=== PATIENT | female | born 1990 | race Caucasian/White ===

== ENCOUNTER → 2018-10-03 | Outpatient (CLI) | payer MEDICAID, SELFPAY ==
[2017-04-14 17:37] VITALS: BMI 22.8
[2018-10-08 13:30] LABS: HPV Reflexed? NOT INDICATED
== END | disposition home or self-care (01) ==
LOC: WOBLAB 15:07 → LABSPEC 15:07
PROVIDERS: Visit Provider Obstetrics & Gynecology
DX: Z12.4 Encounter for screening for malignant neoplasm of cervix (principal)
CPT/HCPCS: 87624; 88175; G0145

== ENCOUNTER → 2019-04-09 15:50 | Outpatient (CLI) | payer MEDICAID, SELFPAY ==
[2017-04-14 17:37] VITALS: BMI 22.8
[2019-04-09 18:03] LABS: Chlamydia Trachomatis by PCR Negative (Negative); Neisserai gonorrhoeae by PCR Negative (Negative); Probe Check PASS; Sample Adequacy Control PASS; Specimen Processing Control PASS
== END ==
PROVIDERS: Visit Provider Obstetrics & Gynecology
DX: Z11.3 Encounter for screening for infections with a predominantly sexual mode of transmission (principal)
CPT/HCPCS: 87491; 87591

== ENCOUNTER → 2019-04-24 | Outpatient (CLI) | payer MEDICAID, SELFPAY ==
[2019-04-24 18:17] LABS: Absolute Lymphocyte Count 1.14 X10^3/uL (0.83-4.51); Absolute Neutrophil Count 7.6 X10^3/uL (2.0-7.7); Basophil# 0.04 X10^3/uL; Basophil% 0.4 % (0-1); Eosinophil# 0.03 X10^3/uL; Eosinophils% 0.3 % (0-5); Hematocrit 39.4 % (37-47); Lymphocyte # 1.14 X10^3/ul (4.0); Lymphocyte % 12.4 % (19-41); Mean Corpuscular Hgb 29.5 pg (27.0-32.0); Mean Corpuscular Volume 89.3 fL (81-99); Mean Platelet Vol. 11.6 fl (6.2-12.0); Monocyte# 0.36 X10^3/uL; Monocyte% 3.9 % (0-10); NRBC Flagged by Analyzer 0 % (0-5); Neutrophil # 7.58 X10^3/uL (2.7-7.7); Neutrophil % 82.7 % (47-70); Platelet Count 209 K/mm3 (150-450); RBC Distribution Width CV 11.8 % (11.6-14.6); Red Blood Count 4.41 M/mm3 (4.2-5.4); White Blood Count 9.2 K/mm3 (4.4-11.0)
[2019-04-24 18:23] LABS: Color, Urine Yellow (Yellow); Glucose, Dipstick Normal (Normal); Ketone-Dipstick Negative (Negative); Leukocyte Esterase-Dipstick 500 /ul (Negative); Nitrite-Dipstick Negative (Negative); Occult Blood-Urine 50 /ul (Negative); Protein-Dipstick Negative (Negative); Urine Bilirubin Dipstick Negative (Negative); Urine Clarity Clear (Clear); Urine Urobilinogen Normal (Normal); Urine pH 6.5 (5.0 - 8.0)
[2019-04-24 18:40] LABS: Thyroid Stim Hormone (TSH) 0.15 uIU/mL (0.358-3.74)
[2019-04-24 18:47] LABS: Amphetamine Urine VISTA NEGATIVE (<1000 ng/mL); Barbiturate Urine VISTA NEGATIVE (< 200 ng/mL); Benzodiazepine Urine VISTA NEGATIVE (< 200 ng/mL); Cocaine Urine VISTA NEGATIVE (< 300 ng/mL); Ecstacy Urine VISTA NEGATIVE (< 500 ng/mL); Methadone Urine VISTA NEGATIVE (< 300 ng/mL); PCP Urine VISTA NEGATIVE (< 25 ng/mL); THC Urine VISTA NEGATIVE (< 50 ng/mL); Vista UDS pH Range 6
[2019-04-25 10:11] LABS: HIV - WCH Non-Reactive (Nonreactive); Hepatitis B Surface Antigen Non-Reactive (Nonreactive); Hepatitis C Antibody Non-Reactive (Nonreactive); Rubella IgG 191.9 IU/mL
[2019-05-01 02:23] LABS: Prenatal RPR NONREACTIVE (NONREACTIVE)
== END | disposition home or self-care (01) ==
LOC: WOBLAB 15:59
PROVIDERS: Referring Provider Advanced Practice Midwife; Visit Provider Advanced Practice Midwife
DX: Z34.81 Encounter for supervision of other normal pregnancy, first trimester (principal)
CPT/HCPCS: 36415; 80307; 81002; 84443; 85025; 86703; 86762; 86803; 87340

== ENCOUNTER → 2019-09-15 13:37 | Outpatient (CLI) | payer MEDICAID, SELFPAY ==
[2019-09-15 13:55] LABS: Hematocrit 33.3 % (37-47); Mean Corpuscular Hgb 30.1 pg (27.0-32.0); Mean Platelet Vol. 10.6 fl (6.2-12.0); Platelet Count 173 K/mm3 (150-450); RBC Distribution Width CV 12.3 % (11.6-14.6); Red Blood Count 3.66 M/mm3 (4.2-5.4); White Blood Count 10.9 K/mm3 (4.4-11.0)
[2019-09-15 14:35] LABS: Free T3 2.6 pg/mL (2.18-3.98); Glucose Challenge Gest 1H 50g 130 mg/dL (70-140); T4 Free Direct 0.87 ng/dL (0.76-1.46)
== END ==
PROVIDERS: Visit Provider Obstetrics & Gynecology
DX: Z34.83 Encounter for supervision of other normal pregnancy, third trimester (principal)
CPT/HCPCS: 36415; 82950; 84439; 84481; 85027

== ENCOUNTER → 2019-11-14 14:19 | Outpatient (CLI) | payer MEDICAID, SELFPAY ==
[2017-04-14 17:37] VITALS: BMI 22.8
== END ==
PROVIDERS: Visit Provider Obstetrics & Gynecology
DX: Z36.85 Encounter for antenatal screening for Streptococcus B (principal)
CPT/HCPCS: 87081

== ENCOUNTER 2019-11-17 05:12 | Outpatient (CLI) | payer MEDICAID, SELFPAY ==
[2017-04-14 17:37] VITALS: BMI 22.8
[2019-11-17 05:27] VITALS: BMI 29.6
[2019-11-17 05:36] VITALS: BP 103/58; PULSE 93
[2019-11-17 05:47] VITALS: TEMP 36.5; O2SAT 98
[2019-11-17 07:22] VITALS: TEMP 36.8
[2019-11-17 07:23] VITALS: BP 121/75; PULSE 74
--- NOTE | 2019-11-17 23:30 | OB.TRI.HP_ITS ---
- Problem List (1) 37 weeks gestation of Status: Acute History of Present Illness Date of Service: 11/17/19 Was patient seen by the physician?: No Reason For Visit: RULE OUT LABOR Date of Service: 11/17/19 Final JOHNNY: 12/07/19 Final JOHNNY Source: US <20 weeks Gestational age: 37 Weeks and 1 Days History of Present Illness: Complaints of contractions which started two hours ago. Allergies No Known Allergies Allergy (Verified 11/17/19 05:50) Review of Systems Constitutional: Denies: Chills, Fever, Weight Change HEENT: Denies: Head Aches, Sinus Congestion, Sinus Drainage Cardiovascular: Denies: Chest Pain, Palpitations Respiratory: Denies: Cough, Shortness of breath at rest, Sputum production Gastrointestinal: Denies: Abdominal Pain, Nausea, Vomiting Genitourinary: Denies: Dysuria Musculoskeletal: Denies: Joint Pain, Joint Tenderness Skin: Denies: Rash, Wounds Neurological: Denies: Numbness, Tingling, Focal weakness Psychiatric: Denies: Anxiety, Depression, Homicidal Ideations, Suicidal Ideations Hematologic/ Lymphatic: Denies: Easy Bruising, Easy Bleeding Physical Exam General: Alert, Oriented x3, No apparent distress HEENT: Atraumatic, Normocephalic. Negative for: Thyromegaly, Lymphadenopathy Cardiovascular: Regular rate, Regular Rhythm Lungs: Clear to auscultation Abdomen: Bowel Sounds Present, Gravid Neurological: Deep Tendon Reflexes 2+/4 and Symmetrical, Neuro grossly intact LEAD SOFTWARE ARCHITECT: Normal external genitalia. Negative for: Vulvar lesions Estimated gestational size: Appropriate for gestational size Presentation: Cephalic Cervix Dilation (cm): 4 Station: -2 Effacement (%): 50 NST - FHR Rate Baby A Baseline: 130 Variability:: Moderate Accelerations:: 15 x 15 Decelerations:: None NST Reactive:: Yes FHR Category:: Category I Uterine Activity:: irregular Q4-7m Impression/Plan A/P: at 37 weeks gestation here to rule out labor Complaints of contractions x 2 hours On arrival SVE /-2 NST Category I UC 4-7m irregular, palpating mild Watched for two hours, on cervical recheck no change at /-2 To discharge home with education on s/s of when to return
== END 2019-11-17 07:55 | disposition home or self-care (01) ==
PROVIDERS: Referring Provider Obstetrics & Gynecology; Visit Provider Obstetrics & Gynecology
DX: Z34.83 Encounter for supervision of other normal pregnancy, third trimester (principal); Z3A.37 37 weeks gestation of pregnancy
CPT/HCPCS: 59025; 59050; 99218; G0378

== ENCOUNTER → 2019-11-27 18:01 | Outpatient (CLI) | payer MEDICAID, SELFPAY ==
[2019-11-17 05:27] VITALS: BMI 29.6
== END ==
PROVIDERS: Referring Provider Obstetrics & Gynecology; Visit Provider Obstetrics & Gynecology
DX: Z11.59 Encounter for screening for other viral diseases (principal)
CPT/HCPCS: 87635; 94799; U0003

== ENCOUNTER 2019-12-01 06:54 | Inpatient (IN) | payer MEDICAID, SELFPAY ==
[2019-12-01] VITALS (46 sets, daily range): BP systolic 118–172; BP diastolic 65–90; PULSE 50–95; RESP 16; TEMP 36.9–37.8; O2SAT 96–100; BMI 29.2
[2019-12-01] MEDS: Lactated Ringers 1,000 ML 50 ML IV (07:40)
[2019-12-01 07:51] LABS: Absolute Lymphocyte Count 1.35 X10^3/uL (0.83-4.51); Absolute Neutrophil Count 8.5 X10^3/uL (2.0-7.7); Basophil# 0.05 X10^3/uL; Basophil% 0.5 % (0-1); Eosinophil# 0.06 X10^3/uL; Eosinophils% 0.6 % (0-5); Hematocrit 30.1 % (37-47); Hemoglobin 9.9 g/dL (12.0-15.0); Lymphocyte # 1.35 X10^3/ul (4.0); Lymphocyte % 12.8 % (19-41); Mean Corp Hgb Conc 32.9 g/dL (32-36); Mean Corpuscular Hgb 28.6 pg (27.0-32.0); Mean Platelet Vol. 10.9 fl (6.2-12.0); Monocyte# 0.52 X10^3/uL; Monocyte% 4.9 % (0-10); NRBC Flagged by Analyzer 0 % (0-5); Neutrophil # 8.54 X10^3/uL (2.7-7.7); Neutrophil % 80.7 % (47-70); Platelet Count 187 K/mm3 (150-450); RBC Distribution Width CV 12.8 % (11.6-14.6); RBC Distribution Width SD 39.9 fl (35.1-43.9); Red Blood Count 3.46 M/mm3 (4.2-5.4); White Blood Count 10.6 K/mm3 (4.4-11.0)
--- NOTE | 2019-12-01 08:12 | HP.PCM_ITS ---
- Problem List (1) 39 weeks gestation of Status: Acute History Date of Admission: 12/01/19 Final JOHNNY: 12/07/19 Final JOHNNY Source: US <20 weeks Gestational age: 39 Weeks and 1 Days History of this : This is a 29 year-old, G [3], P [2], at 39 weeks gestational age. Allergies No Known Allergies Allergy (Verified 11/17/19 05:50) Smoking Status: Current every day smoker Alcohol: None Number of Fetus(es): 1 NST - FHR Rate Baby A Baseline: 135 Variability:: Moderate Accelerations:: 15 x 15 Decelerations:: None NST Reactive:: Yes FHR Category:: Category I Uterine Activity:: quiet History Past Pregnancies: Past Pregnancies Labs: Mom's Labs & Results 12/01/19 12/01/19 07:40 07:40 WBC 10.6 RBC 3.46 L Hgb 9.9 L Hct 30.1 L MCV 87.0 MCH 28.6 MCHC 32.9 RDW Std Deviation 39.9 RDW Coeff of [place] 12.8 Plt Count 187 MPV 10.9 Immature Gran % (Auto) 0.500 Neut % (Auto) 80.7 H Lymph % (Auto) 12.8 L [place] % (Auto) 4.9 Eos % (Auto) 0.6 Baso % (Auto) 0.5 Absolute Neuts (auto) 8.5 H Absolute Lymphs (auto) 1.35 Nucleated RBC % 0 Blood Type Pending Antibody Screen Pending Social History Alleged father Justen Sanchez Smoking Yes Smoking Status Current every day smoker Expected Infant Delivery Method: Spontaneous Vaginal Review of Systems Constitutional: Denies: Chills, Fever, Weight Change HEENT: Denies: Head Aches, Sinus Congestion, Sinus Drainage Cardiovascular: Denies: Chest Pain, Palpitations Respiratory: Denies: Cough, Shortness of breath at rest, Sputum production Gastrointestinal: Denies: Abdominal Pain, Nausea, Vomiting Genitourinary: Denies: Dysuria Musculoskeletal: Denies: Joint Pain, Joint Tenderness Skin: Denies: Rash, Wounds Neurological: Denies: Numbness, Tingling, Focal weakness Psychiatric: Denies: Anxiety, Depression, Homicidal Ideations, Suicidal Ideations Hematologic/ Lymphatic: Denies: Easy Bruising, Easy Bleeding Physical Exam Vitals: Vital Signs Temp Pulse BP Pulse Ox 100.0 F H 86 136/90 H 99 12/01/19 08:00 12/01/19 08:01 12/01/19 08:00 12/01/19 08:01 General: Alert, Oriented x3, No apparent distress HEENT: Atraumatic, Normocephalic. Negative for: Thyromegaly, Lymphadenopathy Cardiovascular: Regular rate, Regular Rhythm Lungs: Clear to auscultation Abdomen: Bowel Sounds Present, Gravid Neurological: Deep Tendon Reflexes 2+/4 and Symmetrical, Neuro grossly intact JOB PLACEMENT OFFICER: Normal external genitalia. Negative for: Vulvar lesions Estimated gestational size: Appropriate for gestational size Presentation: Cephalic Cervix Dilation (cm): 2 Station: -2 Effacement (%): 30 Assessment/Plan All Active Problems 37 weeks gestation of (Acute) 39 weeks gestation of (Acute) Nausea and vomiting in adult (Acute) Diarrhea (Acute) A/P: This is a 29 year-old, G [3], P [2], at 39 weeks gestational age. Elective IOL for a multip with hx of fast labors, 2nd labor=4 hours SVE 230/-2 medium posterior NST Category I Will start Pitocin Plans epidural for pain management and then agreeable to AROM Expect Procedure Criteria Procedure Type: Elective COVID Risk Discussion: The surgeon/proceduralist and patient have discussed in detail the risk of exposure to and/or potential harm posed by the COVID-19 virus with having a surgery/procedure at this time versus the risk of delaying the surgery/procedure. It is not possible to know either the risk of delaying the surgery or procedure or chance of getting an infection with perfect accuracy, but a joint decision was made between the patient and the surgeon/proceduralist to proceed at this time with the scheduled surgery/procedure as indicated on the consent form.
[2019-12-01] MEDS: Oxytocin 30 units/NS 500 ml 30 UNITS/500 ML IV.SOLN IV (08:29)
[2019-12-01] MEDS: Lactated Ringers 500 ML 999 ML IV ×2 (10:00→14:34)
[2019-12-01] MEDS: fentaNYL-bupivacaine (epidural) 100 ML BAG EPIDURAL (10:59)
[2019-12-01] MEDS: Oxytocin 30 units/NS 500 ml 30 UNITS/500 ML IV.SOLN 334 UNITS IV (15:21)
[2019-12-01] MEDS: Methylergonovine 0.2 MG/ML Ampul IM (15:23)
--- NOTE | 2019-12-01 15:34 | PCM.OPRPT ---
Vaginal Delivery Maternal Presentation: Elective Induction Method of Induction: Pitocin, Amniotomy Amniotic Membrane Rupture Type: Artificial Amniotic Fluid Description: Clear Final JOHNNY: 12/07/19 Final JOHNNY Source: US <20 weeks Gestational age: 39 Weeks and 1 Days Date of Procedure: 12/01/19 Pre-Operative Diagnosis: IUP Post-Operative Diagnosis: IUP Surgery/ Procedure Performed: Spontaneous Vaginal Delivery Type of Anesthesia: Epidural Description of Procedure: Spontaneous vaginal delivery of a viable male infant with Apgars of 9/9 from an occiput anterior presentation with clear amniotic fluid and normal three-vessel placenta. No episiotomy and first-degree midline laceration repaired with 3-0 Rapide suture under epidural. Sponges okay. Delivery physician: Bob Miranda MD. Presentation: Vertex Placental Delivery Description: Spontaneous Placenta Disposition: [facility] Cord Vessel Description: 3 Vessels Cord Entanglement: None Estimated Blood Loss: 250 cc A gender: Male (1 minute): 9 (5 minute): 9 Episiotomy Description: None Laceration: Midline, 1st degree Medications given after delivery: IV Pitocin, IM Methergin, - - History of hemorrhage and transfusion Complications: None
--- NOTE | 2019-12-01 15:39 | DCINST_ITS ---
Discharge Diet: No Restrictions Discharge Activity: May Shower, May Take a Tub Bath May resume sexual activity in: 4-6 weeks Additional Activity Instructions:: Nothing in the vagina for 4-6 weeks. You may return to work/school in 6 weeks. Call your doctor if you observe: Inability to urinate, Inability to have a bowel movement, Using more than one pad per hour Additional Instructions: If you experience any of the following, contact your healthcare provider. * Bleeding that soaks a pad every hour for 2 hours * Fever 100.4 or higher * Unrelieved incision or abdominal pain * Swelling, redness, discharge or bleeding from your incision or episiotomy site * Your incision begins to separate * Problems urinating (including inability to urinate or burning while urinating). * Visual changes * Severe headache * Flu-like symptoms * Pain or redness in one of both of your breasts * Pain, warmth, tenderness or swelling in your legs, especially the calf area * Frequent nausea and vomiting * Symptoms of depression or anxiety If you experience any of the following, call 911 or go to the nearest Emergency Room. * Chest pain * Problems breathing * Seizure activity * Partial or complete paralysis of a body part, slurred speech, weakness or drooping of the face, or a sudden inability to walk or hold your balance Allergies/Adverse Reactions: Allergies No Known Allergies Allergy (Verified 11/17/19 05:50) Medications to take at Discharge Pnv No.103/Folic/Om3s/Fish Oil [ Gummies] 1 ea PO DAILY 12/01/19 Please Follow Up With: Bob Miranda MD - [phone] When: Call to make an appointment with your doctor in 6 weeks. Primary Care Physician: Care Physician,No Primary [Primary Care Provider] - Test Results: Test results from this visit will be discussed in further detail at your follow- up appointment, if applicable.
--- NOTE | 2019-12-01 15:39 | PCM.DCVAG ---
Discharge Diet: No Restrictions Discharge Activity: May Shower, May Take a Tub Bath May resume sexual activity in: 4-6 weeks Additional Activity Instructions:: Nothing in the vagina for 4-6 weeks. You may return to work/school in 6 weeks. Call your doctor if you observe: Inability to urinate, Inability to have a bowel movement, Using more than one pad per hour Additional Instructions: If you experience any of the following, contact your healthcare provider. Bleeding that soaks a pad every hour for 2 hours Fever 100.4 or higher Unrelieved incision or abdominal pain Swelling, redness, discharge or bleeding from your incision or episiotomy site Your incision begins to separate Problems urinating (including inability to urinate or burning while urinating). Visual changes Severe headache Flu-like symptoms Pain or redness in one of both of your breasts Pain, warmth, tenderness or swelling in your legs, especially the calf area Frequent nausea and vomiting Symptoms of depression or anxiety If you experience any of the following, call 911 or go to the nearest Emergency Room. Chest pain Problems breathing Seizure activity Partial or complete paralysis of a body part, slurred speech, weakness or drooping of the face, or a sudden inability to walk or hold your balance Allergies/Adverse Reactions: Allergies No Known Allergies Allergy (Verified 11/17/19 05:50) Medications to take at Discharge Pnv No.103/Folic/Om3s/Fish Oil [ Gummies] 1 ea PO DAILY 12/01/19 Please Follow Up With: Bob Miranda MD - [phone] When: Call to make an appointment with your doctor in 6 weeks. Primary Care Physician: Care Physician,No Primary [Primary Care Provider] - Test Results: Test results from this visit will be discussed in further detail at your follow-up appointment, if applicable.
[2019-12-01] MEDS: Ibuprofen 600 MG Tablet PO (17:19)
[2019-12-01] MEDS: 0.9% Saline Lock 10 ML Syringe IV (17:19)
[2019-12-02 00:53] VITALS: BP 136/73; PULSE 61; RESP 16; TEMP 37.1
[2019-12-02] MEDS: Acetaminophen 500 MG Tablet 1000 MG PO (03:23)
[2019-12-02 04:43] VITALS: BP 134/66; PULSE 79; RESP 16; TEMP 37.1
[2019-12-02] MEDS: Ibuprofen 600 MG Tablet PO (04:50)
--- NOTE | 2019-12-02 08:23 | PCM.PN.OB ---
Patient Problems: Active and Suspected Problems 39 weeks gestation of (Acute) Subjective: Patient without complaints. Bottlefeeding. Wants to go home today. Minimal vaginal bleeding noted. - Physical Exam Vitals/I&O's: Vital Signs Temp Pulse Resp BP Pulse Ox 98.7 F 79 16 134/66 H 99 12/02/19 04:43 12/02/19 04:43 12/02/19 04:43 12/02/19 04:43 12/01/19 21:03 Oxygen Delivery Method Room Air Weight: 165 lb Body Mass Index (BMI) 29.2 Intake and Output for Last 24 Hours 11/30/19 12/01/19 12/02/19 23:59 23:59 23:59 Intake Total 2345.14 / 2345.14 Output Total 600 / 600 Balance 1745.14 / 1745.14 Laboratory Results 12/01/19 07:40: Blood Type O POSITIVE, Antibody Screen NEGATIVE Current Medications Acetaminophen (Tylenol) 1,000 mg PO Q8H PRN PRN PRN Reason: Pain Score 1-3/10 Last Admin: 12/02/19 03:23 Dose: 1,000 mg Documented by: Bisacodyl (Dulcolax) 10 mg RECTAL UD PRN PRN Reason: If no BM Dibucaine (Dibucaine) 1 applic TOPICAL TID PRN PRN; Protocol PRN Reason: Discomfort Hydrocortisone (Hytone) 1 applic TOPICAL TID PRN PRN; Protocol PRN Reason: Discomfort Ibuprofen (Motrin) 600 mg PO Q6H PRN PRN PRN Reason: Pain Score 1-3/10 Last Admin: 12/02/19 04:50 Dose: 600 mg Documented by: Methylergonovine Maleate (Methergine) 0.2 mg IM X1 PRN PRN Reason: Excess bleeding/uterine atony Last Admin: 12/01/19 15:23 Dose: 0.2 mg Documented by: Ondansetron HCl (Zofran) 4 mg IV Q4H PRN PRN PRN Reason: Nausea Oxycodone HCl (Oxyir) 5 - 10 mg PO Q4H PRN PRN PRN Reason: Pain Score 4-10/10 Senna/Docusate Sodium (Senokot-S, Maral-Colace) 1 - 2 tablet PO DAILY PRN PRN PRN Reason: Constipation Simethicone (Mylicon) 80 mg PO PCHS PRN PRN Reason: Indigestion/Stomach pain Sodium Chloride () 5 - 15 ml IV UD PRN PRN Reason: SALINE FLUSH Last Admin: 12/01/19 17:19 Dose: 10 ml Documented by: Zolpidem Tartrate (Ambien (Generic)) 5 mg PO QHS PRN PRN PRN Reason: Insomnia Medical Necessity - Tobacco Use Smoking Status: Current every day smoker Assessment/Plan All Active Problems 37 weeks gestation of (Acute) 39 weeks gestation of (Acute) Nausea and vomiting in adult (Acute) Diarrhea (Acute) Doing well day #1 status post routine spontaneous vaginal delivery. Will release to home with routine instructions.
[2019-12-02 08:30] VITALS: BP 117/68; PULSE 72; RESP 16; TEMP 37.1
[2019-12-02 08:57] VITALS: BP 117/68; PULSE 72
[2019-12-02 12:00] VITALS: BP 113/70; PULSE 83; RESP 16; TEMP 36.8
[2019-12-02 12:03] VITALS: BP 113/70; PULSE 83
--- NOTE | 2019-12-02 15:11 | CASEMGMT ---
Social Work Assessment (information below was generated with Entrust[employer] system) Labor and Delivery Unit Patient Address: [address] [place] [address] Phone number: [phone] Date of Referral: 12/01/2019 Time of Referral: 1550 Referred By: Dr. Miranda Date of Intervention: 12/02/2019 Time of Intervention: 1500 Reason for Referral: Resources, possible [facility] enrollment, and father of baby (FOB) not involved. History obtained from: Medical records and mother of baby (BRUCE) Angelica Baxter Household composition: BRUCE lives with her boyfriend Justen Ayala and their 2 older children. MOB plans to take baby to his home as well. MOB reports home situation is safe and adequate. Patient's parent/guardian status: MOB is a 29-year-old single female, and FOB is reported to be a 35-year-old single male named Justen [place]. [place] baby is reported to be the first child for the FOB, whom MOB reports she was with only one time. MOB reports has been in a 9-year relationship with Justen Ayala, and involvement with the reported FOB was during the 1 week timeframe when broken up with Justen Ayala. MOB reports that Justen Ayala plans to be supportive of both BRUCE and the baby. MOB denies any form of abuse, control or intimidation in the relationship with Justen Ayala. BRUCE now has 3 children: Linus Ayala, born 06/03/2013; Taco Ayala, born 12/30/2015; baby Sury Baxter, born 12/01/2019. Medical History: BRUCE is to 3 after care was good starting at 7 weeks gestation and regular that delivery occurred at 39 weeks is 9 and 9 at 1 and 5 minutes of life. Educational Status: High school. No indications of difficulty with reading, writing, or learning comprehension. Financial Status: And will be works at [employer] and will be taking 6 weeks of maternity leave. Justen Ayala is on Social Security disability for issues relating to reading and writing. Finances are reported to be adequate at this time. Supplies: MOB reports to have a safe sleep space for the baby and also to have a car seat. Reports also to have clothing, diapers, and wipes. MOB is planning to bottle feed the baby and reports ability to purchase formula until she can get into [facility]. Childcare/Caregiver(s): MOB will be the primary care provider. When BRUCE returns to work Justen Alba will be looking after Baby Sury. Transportation: No concerns. Programs/Agencies Involved: MOB is involved with job and family services for medical. MOB reports to have an appointment with [facility] on 12/03/2019 at 8 AM. Denies any other agency involvement, nor interest in any other agency referral. Children Services/Legal Issues: MOB denies any past or present involvement with children services. Denies any legal concerns. Behavioral Health Issues: Mental Health History: MOB denies any history of depression, anxiety, or bipolar disorder. Denies any history of depression. Denies any history of suicidal thoughts or attempts. Substance Use History: MOB denies any history of alcohol use in and denies any concerns with alcohol outside of . Denies any use of illicit substances including marijuana or any type of narcotic type prescription pills. Family History: MOB denies any family history. Drug Screens: And will be with a negative drug screen on 04/24/2019. Family/Social Stressors: MOB admits it was stressful realizing that she was , especially due to the fact that conception occurred after one-time encounter with the reported FOB. MOB is concerned that the reported FOB will take MOB for some type of custody or visitation with this baby. MOB reports she is concerned that the reported FOB has never taken care of a baby before, is a 35-year-old man without any other children, and who still lives with his own father. MOB reports the FOB's home situation is not ideal in the sense that there are many animals, bugs in the home, and overall just not clearing. MOB denies any type of safety concern with the reported FOB however. Support Systems: MOB reports that her current boyfriend, and father to MOB oldest 2 children, Justen Alba Is supportive and willing to be supportive of the baby. MOB reports to have several good friends who are a great support system, and 1 of those friends has actually agreed to be a airset caster with the FOB and allowing supervised visits to be at that friend's home. Depression/Shaken Baby/Safe Sleeping MOB educated to depression, risk factors, and signs to look for. MOB is aware of what safe sleepiness. Information provided to MOB in writing on depression, shaking baby prevention, and safe sleeping. ASSESSMENT: Met with MOB privately in the room next door to MOB's room as MOB's support person, Justen Ayala, was sleeping soundly in MOB's room. Upon meeting with the MOB, MOB was pleasant and cooperative. MOB did become tearful, and openly cried when discussing the situation with the reported FOB. Supportive listening and reflection offered. Answered MOB questions as able. MOB reports plan to call [place] contract paralegal this week to find out if they can help her should the reported FOB tried to go to court for custody or visitation of the baby. FOB has called [facility] to start [facility] services and has an appointment tomorrow morning. MOB denies any concerns with going home, and reports to have all needed supplies to care for the baby. MOB reports perception that her current boyfriend Justen Ayala will be supportive, and that he has been helpful with the baby so far. This curriculum writer explored concerns conveyed to this curriculum writer by nursing yesterday, that possibly Justen Alba was not involved much and helping with the baby. MOB reports that initially Justen Alba was a little bit in shock about the baby and was not initially hands on, but as the shock wore off he more helpful to MOB overnight, such as helping to change diapers. MOB accepted information on depression and anxiety, as well as informational handout on area social service agencies that are sometimes helpful to him parents. MOB denies any concerns with home-going. PLAN: MOB and baby will discharge home. MOB has been provided information on depression, and has a social service resource list for [facility]. MOB plans to follow-up with back. MOB reports she will have help at home going from her current boyfriend. No other services requested or indicated. -SANDY Morris, AMBER
[2019-12-03 20:01] VITALS: TEMP 36.7
[2019-12-03 20:07] VITALS: BP 122/72; PULSE 81; PULSE 88; O2SAT 97
== END 2019-12-02 17:15 | disposition home or self-care (01) | DRG 560 ==
PROVIDERS: Admitting Provider Obstetrics & Gynecology; Referring Provider Obstetrics & Gynecology; Visit Provider Obstetrics & Gynecology
DX: O75.89 Other specified complications of labor and delivery (principal); O70.0 First degree perineal laceration during delivery; O99.334 Smoking (tobacco) complicating childbirth; F17.200 Nicotine dependence, unspecified, uncomplicated; Z37.0 Single live birth; Z3A.39 39 weeks gestation of pregnancy
CPT/HCPCS: 59050; 85025; 86850; 86900; 86901; 99218; J7120; A4216; G0378

== ENCOUNTER → 2022-03-16 | Outpatient (CLI) | payer MEDICAID, SELFPAY ==
[2022-03-16 15:41] LABS: Absolute Lymphocyte Count 1.17 X10^3/uL (0.83-4.51); Basophil# 0.04 X10^3/uL; Basophil% 0.4 % (0-1); Eosinophil# 0.05 X10^3/uL; Eosinophils% 0.5 % (0-5); Hematocrit 37.9 % (37-47); Hemoglobin 12.7 g/dL (12.0-15.0); Lymphocyte # 1.17 X10^3/ul (0.83-4.51); Lymphocyte % 11.9 % (19-41); Mean Corp Hgb Conc 33.5 g/dL (32-36); Mean Corpuscular Hgb 28.7 pg (27.0-32.0); Mean Corpuscular Volume 85.7 fL (81-99); Mean Platelet Vol. 10.5 fl (6.2-12.0); Monocyte# 0.53 X10^3/uL; Monocyte% 5.4 % (0-10); NRBC Flagged by Analyzer 0 % (0-5); Neutrophil % 81.4 % (47-70); Platelet Count 197 K/mm3 (150-450); RBC Distribution Width CV 12.5 % (11.6-14.6); RBC Distribution Width SD 39.1 fl (35.1-43.9); Red Blood Count 4.42 M/mm3 (4.2-5.4); White Blood Count 9.8 K/mm3 (4.4-11.0)
[2022-03-16 16:05] LABS: Amphetamine Urine VISTA NEGATIVE (<1000 ng/mL); Barbiturate Urine VISTA NEGATIVE (< 200 ng/mL); Benzodiazepine Urine VISTA NEGATIVE (< 200 ng/mL); Cocaine Urine VISTA NEGATIVE (< 300 ng/mL); Ecstacy Urine VISTA NEGATIVE (< 500 ng/mL); Methadone Urine VISTA NEGATIVE (< 300 ng/mL); PCP Urine VISTA NEGATIVE (< 25 ng/mL); THC Urine VISTA NEGATIVE (< 50 ng/mL); Vista UDS pH Range 6
[2022-03-16 16:34] LABS: NATERA MAILED SPECIMEN
[2022-03-16 16:42] LABS: HIV - WCH Non-Reactive (Nonreactive); Hepatitis C Antibody Non-Reactive (Nonreactive); Rubella IgG Reactive (Nonreactive); Syphilis Antibodies Non-reactive
[2022-03-21 00:07] LABS: Chlamydia By Nucleic Acid AMP Negative (Negative)
[2022-03-21 16:01] LABS: Gonococcus By Nucleic Acid AMP Negative (Negative)
[2022-03-26 10:49] LABS: HPV APTIMA, High Risk Negative
== END | disposition home or self-care (01) ==
PROVIDERS: Referring Provider Obstetrics & Gynecology; Visit Provider Obstetrics & Gynecology
DX: Z34.81 Encounter for supervision of other normal pregnancy, first trimester (principal); Z12.4 Encounter for screening for malignant neoplasm of cervix; O09.90 Supervision of high risk pregnancy, unspecified, unspecified trimester; Z3A.00 Weeks of gestation of pregnancy not specified
CPT/HCPCS: 36415; 80307; 85025; 86703; 86762; 86780; 86803; 86850; 86900; 86901; 87086; 87088; 87491; 87591; 87624; 88175; G0145

== ENCOUNTER → 2022-07-03 | Outpatient (CLI) | payer MEDICAID, SELFPAY ==
[2022-07-03 12:17] LABS: Absolute Lymphocyte Count 1.38 X10^3/uL (0.83-4.51); Absolute Neutrophil Count 11.4 X10^3/uL (2.0-7.7); Basophil# 0.04 X10^3/uL; Basophil% 0.3 % (0-1); Eosinophil# 0.05 X10^3/uL; Eosinophils% 0.4 % (0-5); Hematocrit 34.2 % (37-47); Hemoglobin 10.9 g/dL (12.0-15.0); Lymphocyte # 1.38 X10^3/ul (0.83-4.51); Lymphocyte % 10.3 % (19-41); Mean Corp Hgb Conc 31.9 g/dL (32-36); Mean Corpuscular Hgb 29.4 pg (27.0-32.0); Mean Corpuscular Volume 92.2 fL (81-99); Mean Platelet Vol. 10.2 fl (6.2-12.0); Monocyte# 0.44 X10^3/uL; Monocyte% 3.3 % (0-10); NRBC Flagged by Analyzer 0 % (0-5); Neutrophil # 11.39 X10^3/uL (2.7-7.7); Neutrophil % 85.3 % (47-70); Platelet Count 223 K/mm3 (150-450); RBC Distribution Width CV 12.9 % (11.6-14.6); RBC Distribution Width SD 43.4 fl (35.1-43.9); Red Blood Count 3.71 M/mm3 (4.2-5.4); White Blood Count 13.4 K/mm3 (4.4-11.0)
[2022-07-03 13:30] LABS: Glucose Challenge Gest 1H 50g 140 mg/dL (70-140)
[2022-07-03 13:57] LABS: HIV - WCH Non-Reactive (Nonreactive); Syphilis Antibodies Non-reactive
== END | disposition home or self-care (01) ==
LOC: LAB 11:57
PROVIDERS: Referring Provider Registered Nurse; Visit Provider Registered Nurse
DX: O09.90 Supervision of high risk pregnancy, unspecified, unspecified trimester (principal); Z13.1 Encounter for screening for diabetes mellitus
CPT/HCPCS: 36415; 82950; 85025; 86703; 86780

== ENCOUNTER → 2022-07-05 | Outpatient (CLI) | payer MEDICAID, SELFPAY ==
[2022-07-05 08:46] LABS: Glucose GTT-Gestation. Fasting 92 mg/dL (<105)
[2022-07-05 09:59] LABS: Glucose GTT-Gestational 1 Hr 107 mg/dL (<190)
[2022-07-05 10:45] LABS: Glucose GTT-Gestational 2 Hr 94 mg/dL (<165)
[2022-07-05 11:49] LABS: Glucose GTT-Gestational 3 Hr 42 L (<145)
== END | disposition home or self-care (01) ==
LOC: LAB 07:55
PROVIDERS: Referring Provider Nurse Practitioner Women's Health; Visit Provider Nurse Practitioner Women's Health
DX: Z13.1 Encounter for screening for diabetes mellitus (principal)
CPT/HCPCS: 36415; 82951; 82952

== ENCOUNTER → 2022-08-02 | Outpatient (CLI) | payer MEDICAID, SELFPAY ==
[2022-08-02 11:36] LABS: Absolute Lymphocyte Count 1.48 X10^3/uL (0.83-4.51); Absolute Neutrophil Count 8.5 X10^3/uL (2.0-7.7); Basophil# 0.05 X10^3/uL; Basophil% 0.5 % (0-1); Eosinophil# 0.09 X10^3/uL; Eosinophils% 0.8 % (0-5); Hematocrit 32.1 % (37-47); Hemoglobin 10.6 g/dL (12.0-15.0); Lymphocyte # 1.48 X10^3/ul (0.83-4.51); Lymphocyte % 13.9 % (19-41); Mean Corpuscular Hgb 29.4 pg (27.0-32.0); Mean Corpuscular Volume 89.2 fL (81-99); Mean Platelet Vol. 10.5 fl (6.2-12.0); Monocyte% 4.7 % (0-10); NRBC Flagged by Analyzer 0 % (0-5); Neutrophil # 8.45 X10^3/uL (2.7-7.7); Neutrophil % 79.4 % (47-70); Platelet Count 162 K/mm3 (150-450); RBC Distribution Width CV 12.7 % (11.6-14.6); RBC Distribution Width SD 41.6 fl (35.1-43.9); White Blood Count 10.6 K/mm3 (4.4-11.0)
== END | disposition home or self-care (01) ==
LOC: PAVLAB 11:06
PROVIDERS: Referring Provider Nurse Practitioner Women's Health; Visit Provider Nurse Practitioner Women's Health
DX: O99.019 Anemia complicating pregnancy, unspecified trimester (principal); Z3A.00 Weeks of gestation of pregnancy not specified
CPT/HCPCS: 36415; 85025

== ENCOUNTER → 2022-08-10 | Outpatient (CLI) | payer MEDICAID, SELFPAY ==
--- NOTE | 2022-08-10 11:21 | US_ITS ---
STUDY: SECOND AND THIRD TRIMESTER OBSTETRICAL ULTRASOUND-limited REASON FOR EXAM: Female, 32 years old routine survey LMP: 01/02/2022 TECHNIQUE: Transabdominal TECHNICAL QUALITY: Adequate. PRIOR ULTRASOUND: None. FINDINGS: There is a single intrauterine fetus. The fetus is in a cephalic presentation. There is demonstrated cardiac activity with a heart rate of 126 bpm. There is a normal amniotic fluid volume. The largest amniotic fluid pocket measures 3.7 cm. The amniotic fluid index (WANDA) is 12.7 cm. The placenta is posterior in location and is not low lying. There are Grade 1 placental changes. The cervix measures 3.8 cm in length. The bilateral adnexal regions are normal. BIOMETRY: BPD: 7.12 cm: 28 weeks, 4 days HC: 27.10 cm: 29 weeks, 4 days AC: 26.04 cm: 30 weeks, 1 days FL: 5.78 cm: 30 weeks, 2 days age by current US: 29 weeks, 4 days. JOHNNY by current US: 10/22/2022. Estimated weight: 1502 grams, +/- 225 grams, 8 %. There is no sonographic etiology to explain the low weight. US/OB Limited With Biometrics IMPRESSION: Single live intrauterine at 29 weeks, 4 days by current ultrasound with JOHNNY of 10/22/22. Heart rate at 126 bpm. No suspicious sonographic findings, however, the estimated weight is measuring only 8%. There is no sonographic etiology for the low estimated weight. Electronically Signed: Erlin Swartz MD at 12:45 EDT ,
== END | disposition home or self-care (01) ==
LOC: US 11:20
PROVIDERS: Referring Provider Nurse Practitioner Women's Health; Visit Provider Nurse Practitioner Women's Health
DX: O36.5990 Maternal care for other known or suspected poor fetal growth, unspecified trimester, not applicable or unspecified (principal); Z3A.00 Weeks of gestation of pregnancy not specified
CPT/HCPCS: 76816

== ENCOUNTER 2022-09-12 22:30 | Outpatient (CLI) | payer MEDICAID, SELFPAY ==
[2022-09-12 22:39] VITALS: TEMP 36.3
[2022-09-12 22:40] VITALS: PULSE 109; O2SAT 98
[2022-09-12 22:43] VITALS: BP 126/77; PULSE 113
[2022-09-12 22:47] VITALS: BMI 28.3
[2022-09-12 23:46] LABS: Mucous, Urine 0 SEEN /hpf (<or=2+)
[2022-09-12 23:47] LABS: Color, Urine Brown (Yellow); Glucose, Dipstick Normal (Normal); Ketone-Dipstick 5 mg/dl (Negative); Leukocyte Esterase-Dipstick 500 /ul (Negative); Nitrite-Dipstick Negative (Negative); Occult Blood-Urine 250 /ul (Negative); Protein-Dipstick 100 mg/dl (Negative); Urine Clarity Cloudy (Clear); Urine Urobilinogen 1 mg/dl (Normal); Urine pH 6.5 (5.0 - 8.0)
[2022-09-12 23:55] LABS: Urine Bilirubin Dipstick 1 mg/dL (Negative)
[2022-09-12 23:56] LABS: White Blood Cells 25-50 SEEN /hpf (0-5)
[2022-09-12 23:57] LABS: Bacteria 4+ /hpf (None Seen); Red Blood Cells-Urine 0-5 SEEN /hpf (0-5); Squamous Epithelial Cells - UA 10-25 SEEN /hpf (5-10)
[2022-09-13] VITALS (9 sets, daily range): BP systolic 97–191; BP diastolic 56–107; PULSE 74–109; TEMP 36.6; O2SAT 96–99
[2022-09-13 00:11] LABS: Group B Strep DNA By PCR POSITIVE (Negative); Probe Check PASS
[2022-09-13] MEDS: LACTATED RINGERS 500 ML 999 ML IV (00:15)
--- NOTE | 2022-09-13 01:58 | OB.TRI.PN ---
Progress Notes Date of Service: 09/12/22 Progress Note: Patient presents for triage evaluation secondary to contractions FHT: 120 Moderate variability reactive no decelerations category I tracing [place]: mild Contractions every 1-3 minutes Assessment and plan: Reactive NST, reassuring maternal and status. to follow-up in office at next scheduled appointment. See problem list details for additional plan information. If no cervical change, discharge home. Laboratory Studies: Laboratory Tests 09/12/22 09/12/22 Range/Units 23:20 22:50 Urine Color Brown (Yellow) Urine Clarity Cloudy (Clear) Urine pH 6.5 (5.0 - 8.0) Ur Specific [place] 1.020 (1.002-1.030) Urine Protein 100 H (Negative) mg/dl Urine Glucose (UA) Normal (Normal) mg/dl Urine Ketones 5 H (Negative) mg/dl Urine Occult Blood 250 H (Negative) /ul Urine Nitrite Negative (Negative) Urine Bilirubin 1 H (Negative) mg/dL Urine Urobilinogen 1 H (Normal) mg/dl Ur Leukocyte Esterase 500 H (Negative) /ul Urine RBC 0-5 SEEN (0-5) /hpf Urine WBC 25-50 SEEN (0-5) /hpf Ur Squamous Epith Cells 10-25 SEEN (5-10) /hpf Urine Bacteria 4+ (None Seen) /hpf Urine Mucus 0 SEEN (<or=2+) /hpf Group B Strep DNA POSITIVE H (Negative) Specimen Comment Not Reportable Charges/Coding Multi Select Codes Urinary/Genital Urinary/Genital CPT Codes: 07193-31 non-stress test Interp Assessment & Plan (1) IUGR (intrauterine growth restriction) affecting care of mother: COMMENT: Growth 8% per [facility] US. [facility] repeat: nl BPP, growth 11%:recommend testing twice weekly with growth US every 2 weeks and weekly UA doppler (2) Tobacco abuse: COMMENT: Counseled. Down to 5 cig pd. Discussed again (3) Supervision of high risk , antepartum: COMMENT: [id number], JOHNNY 10/09/22,boy, Taco Dacosta Avan BF-Kevin (4) : QUALIFIERS: Weeks of gestation: 35 weeks Qualified Code(s): Z3A.35 - 35 weeks gestation of COMMENT: NIPT low risk, discussed Carrier testing (5) Positive GBS test: COMMENT: treat in labor (6) UTI (urinary tract infection) in , antepartum: COMMENT: WP on 09/12- needs repeat culture PLAN: macrobid
[2022-09-13] MEDS: Nitrofurantoin Macrocrystals 100 MG Capsule PO (03:41)
== END 2022-09-13 04:00 | disposition home or self-care (01) ==
LOC: WPOUT 22:33 → WP 22:33
PROVIDERS: Visit Provider Advanced Practice Midwife
DX: O36.5930 Maternal care for other known or suspected poor fetal growth, third trimester, not applicable or unspecified (principal); Z3A.35 35 weeks gestation of pregnancy; O99.333 Smoking (tobacco) complicating pregnancy, third trimester; O98.813 Other maternal infectious and parasitic diseases complicating pregnancy, third trimester; B95.1 Streptococcus, group B, as the cause of diseases classified elsewhere; O23.43 Unspecified infection of urinary tract in pregnancy, third trimester
CPT/HCPCS: 59025; 59050; 81001; 87077; 87086; 87088; 87186; 87653; 99221; J7120; G0378

== ENCOUNTER 2022-09-27 06:55 | Inpatient (IN) | payer MEDICAID, SELFPAY ==
[2022-09-27] VITALS (37 sets, daily range): BP systolic 96–126; BP diastolic 55–73; PULSE 66–101; TEMP 36.1–37.2; O2SAT 82–100; BMI 29.0
[2022-09-27] MEDS: Lactated Ringers 1,000 ML 50 ML IV (07:50)
[2022-09-27 08:09] LABS: Absolute Lymphocyte Count 1.46 X10^3/uL (0.83-4.51); Absolute Neutrophil Count 8.6 X10^3/uL (2.0-7.7); Basophil# 0.06 X10^3/uL; Basophil% 0.6 % (0-1); Eosinophil# 0.04 X10^3/uL; Eosinophils% 0.4 % (0-5); Hematocrit 31.3 % (37-47); Hemoglobin 10.2 g/dL (12.0-15.0); Lymphocyte # 1.46 X10^3/ul (0.83-4.51); Lymphocyte % 13.4 % (19-41); Mean Corp Hgb Conc 32.6 g/dL (32-36); Mean Platelet Vol. 10.7 fl (6.2-12.0); Monocyte# 0.62 X10^3/uL; Monocyte% 5.7 % (0-10); NRBC Flagged by Analyzer 0 % (0-5); Neutrophil # 8.64 X10^3/uL (2.7-7.7); Neutrophil % 79.5 % (47-70); Platelet Count 217 K/mm3 (150-450); RBC Distribution Width CV 13.2 % (11.6-14.6); Red Blood Count 3.64 M/mm3 (4.2-5.4); White Blood Count 10.9 K/mm3 (4.4-11.0)
[2022-09-27] MEDS: Oxytocin 15 Units/NS 250ml 15 UNITS/250 ML IV.SOLN 2 UNITS IV (08:44)
[2022-09-27 08:58] LABS: Hepatitis B Surface Antigen Non-Reactive (Nonreactive)
[2022-09-27 08:59] LABS: Syphilis Antibodies Non-reactive
--- NOTE | 2022-09-27 09:10 | HP.PCM.OB_ITS ---
HPI - General General Date of Admission: 09/27/22 HPI Narrative JULIA JEFFERSON, is a 32 y/o @ 38 weeks with IUGR who presents to L&D for IOL. Maternal Data Information JOHNNY Calculator Estimated Delivery Date Method Current WG Current Estimate 10/09/22 LMP (Uncertain) 38w 2d Other Estimates 10/09/22 Ultrasound #1 38w 2d PFSH PFSH Medical History (Updated 09/27/22 @ 08:32 by Levi Rankin) History of blood transfusion History of nephrolithotomy with removal of calculi History of prior with IUGR hemorrhage URI (upper respiratory infection) Home Medications 103-folic acid 400 mcg-omeg3 32.5 mg-dha-fish oil chew tablet 1 ea PO DAILY Check with primary doctor 12/01/19 [History Last Taken 09/26/22 10:00 1 tab] Allergy/AdvReac Type Severity Reaction Status Date / Time Penicillins Allergy PT UNSURE Verified 09/27/22 07:15 OF REACTION Social History adopted: No household members: significant other and children number of children: 3 current occupational status: employed 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 [employer] current occupational exposures/hazards: No pets and animals: Yes (not managing litterbox) pets and animals: cat(s) and dog(s) history of recent travel: No sexually active: Yes Smoking Status: Heavy Smoker (>10/day) Tobacco: How many years used: 13 quit status: considering quitting counseling given: counseling >3 minutes alcohol intake: former details: vaery rare- Not while substance use type: does not use well-balanced diet: daily or most days caffeine: Yes Type: carbonated beverages Number of servings: 1 and coffee Number of servings: 1 eating out: rarely or never during the past year weight has: remained stable what type of physical activity do you participate in: none filomena/confucianist: None seatbelt use: sometimes do you feel safe at home: Yes additional social history: TADEO Campuzano- Stay at home Dad History 4 Elective abortions Hx Para 3 Spontaneous abortions Hx # Term Pregnancies Ectopic pregnancies Hx # Pregnancies Multiple births # of living children 3 Past Pregnancies Del. Date Name GA/Weeks Outcome Route Bth Weight Infant Gen Labor Lgth Anesthesia Del Locatn Provider FOB 06/03/13 Linus 38 live - full term 7#9oz Male 39 hrs epid ural [facility] Dr. Ruth Campuzano 12/30/15 Taco 38 live - full term 6#7oz Male 6 hr epidu ral [facility] Dr.Weeman Campuzano 12/01/19 Sury 41 live - full term 7# Male 8 hrs epidur al [facility] Dr.Weeman Campuzano Delivery Date: 12/01/19 Last Updated by: Christiana Camacho IOL postdate Visit Details Expected Delivery Route/Plan Labor Preferences- CB/BF classes: no labor support person: Justen labor intervention preferences: [] pain management options preferred: epidural cut cord/dad catch: no : yes PP control planned: BTL discussed possible routes of delivery and associated risks: [] special requests: [] Plans Covid status: discussed Flu vaccine: declines Tdap vaccine: declines Rhogam: na LARC form signed: yes Problem list reviewed and updated with the most current plan of care details and appropriate orders placed. Relevant counseling for the gestational age provided. Continue routine care and follow up unless otherwise noted in visit notes/problem list details OB Flowsheet Initial Weight: Not Recorded Date -?-?-?-?-?-?-?-?-?--?-?-?- EGA Weight BP Urine Prot -?-?-?-?-?-?-?-?-?-?-?-?- Glucose FHR FuHt Pres Dilation -?-?-?-?-?-?-?-?-?-?-?-?- Effaced St Visit Note 03/16/22 -?-?-?-?-?-?-?-?-?-?-?-?- 10w 3d 137 lb 4 oz 111/71 -?-?-?-?-?-?-?-?-?-?-?-?- 169 -?-?-?-?-?-?-?-?-?-?-?-?- JV- single live IUP measuring 10 weeks 3 days. consistent with LMP. JOHNNY is 10/09/21 04/13/22 -?-?-?-?-?-?-?-?-?-?-?-?- 14w 3d 137 lb 6 oz 108/68 Nega tive -?-?-?-?-?-?-?-?-?-?-?-?- Negative 145 -?-?-?-?-?-?-?-?-?-?-?-?- JV- no lof, vagi nal bleeding, or cramping. pt desires pp salpingectomy. plan for remote procedure and sign title 19 05/09/22 -?-?-?-?-?-?-?-?-?-?-?-?- 18w 1d 148 lb 108/66 Negative -?-?-?-?-?-?-?-?-?-?-?-?- Negative 146 -?-?-?-?-?-?-?-?-?-?-?-?- -No VB. Suleman shearer. Rev nl PN labs. Has dec smoking to 5cig pd 06/05/22 -?-?-?-?-?-?-?-?-?-?-?-?- 22w 0d 152 lb Negative -?-?-?-?-?-?-?-?-?-?-?-?- Negative 140 20 -?-?-?-?-?-?-?-?-?-?-?-?- LC no vb/crampin g.+fm. reviewed normal anatomy scan. 28 week labs ordered 07/03/22 -?-?-?-?-?-?-?-?-?-?-?-?- 26w 0d 152 lb 6 oz 110/68 Nega tive -?-?-?-?-?-?-?-?-?-?-?-?- Negative 138 25 -?-?-?-?-?-?-?-?-?-?-?-?- MH-No Vb, LOF. G ood FM. Larc. Add Fe for anemia, needs 3 hr GTT. counseled on smoking 07/17/22 -?-?-?-?-?-?-?-?-?-?-?-?- 28w 0d 156 lb 2 oz 112/68 Nega tive -?-?-?-?-?-?-?-?-?-?-?-?- Negative 146 27 -?-?-?-?-?-?-?-?-?-?-?-?- -No vB, LOF. G ood Fm. Taking Fe daily. Nl 3 hr GTT 08/02/22 -?-?-?-?-?-?-?-?-?-?-?-?- 30w 2d 155 lb 8 oz 121/76 Nega tive -?-?-?-?-?-?-?-?-?-?-?-?- Negative 152 27 -?-?-?-?-?-?-?-?-?-?-?-?- -No VB, LOF. G ood FM. Rpt CBC today. Enc to stop smoking. Growth US ordered 08/18/22 -?-?-?-?-?-?-?-?-?-?-?-?- 32w 4d 156 lb 2 oz 113/76 113/76 Negative -?-?-?-?-?-?-?-?-?-?-?-?- Negative 130 -?-?-?-?-?-?-?-?-?-?-?-?- KW-no vb/lof/ctx . +FM. NST today KW-no vb/lof/ctx. +FM. NST t grupo. encouraged increase water intake 08/21/22 -?-?-?-?-?-?-?-?-?-?-?-?- 33w 0d 158 lb 4 oz 96/65 Nega tive -?-?-?-?-?-?-?-?-?-?-?-?- Negative 130 -?-?-?-?-?-?-?-?-?-?-?-?- SM- SM- nst done no vb lof good fm no regular ctx 08/28/22 -?-?-?-?-?-?-?-?-?-?-?-?- 34w 0d 160 lb 2 oz 112/74 Nega tive -?-?-?-?-?-?-?-?-?-?-?-?- Negative 130 -?-?-?-?-?-?-?-?-?-?-?-?- MH_Reactive NST. No VB, LOF. Good FM. 09/07/22 -?-?-?-?-?-?-?-?-?-?-?-?- 35w 3d 159 lb 4 oz 116/69 Nega tive -?-?-?-?-?-?-?-?-?-?-?-?- Negative 140 -?-?-?-?-?-?-?-?-?-?-?-?- JV- NST reactive . pt states that [facility] recommended delivery at 38 weeks. Has been getting twice weekly nsts and weekly doppers with them along with q 2 week growths for AC 2nd% and overall 11th% growth. Need that in a note. request sent. 09/14/22 -?-?-?-?-?-?-?-?-?-?--?-?- 36w 3d 159 lb 8 oz 114/72 Nega tive -?-?-?-?-?-?-?-?-?-?-?-?- Negative 130 34 -?-?-?-?-?-?-?-?-?-?-?-?- JV- new growth s hows IUGR 13th% overall but 7th% ac. [facility] recommend delivery 38 weeks to 39 weeks at latest. UTI + gbs and allergic to pcn (rash) will try keflex. needs vanc in labor. 09/21/22 -?-?-?-?-?-?-?-?-?-?-?-?- 37w 3d 162 lb 4 oz 117/76 Nega tive -?-?-?-?-?-?-?-?-?-?-?-?- Negative 140 35 Cephalic 1 -?-?-?-?-?-?-?-?-?-?-?-?- 30 -3 JV- nst re active IOL set up for 09/27 at 7am. ROS Constitutional Constitutional: Denies change in weight, fatigue, fever(s), headache(s), poor appetite or weakness Eyes Eyes: Denies blurry vision, change in vision, seeing flashes or spots in vision ENT HEENT: Denies dizziness, headache(s), loss taste/smell or sore throat Cardiovascular Cardiovascular: Denies chest pain, dizziness, dyspnea, irregular heart rhythm, leg edema, palpitations, rapid heart rate or vomiting Respiratory/Chest Respiratory/Chest: Denies chest tightness, cough, dyspnea or breast pain Gastrointestinal Gastrointestinal: Denies abdominal pain, anorexia, constipation, cramping, diarrhea, hemorrhoids, vomiting or weight changes Genitourinary Genitourinary: Denies dysuria, flank pain, genital lesions, genital pain, urinary frequency or urinary urgency Musculoskeletal Musculoskeletal: Denies back pain, difficulty walking, joint pain, limited range of motion, muscle cramps or numbness Integumentary Integumentary: Denies lesions or unusual bruising Neurologic Neurologic: Denies abnormal movements, abnormal speech, dizziness, numbness, seizure-like activity or syncope Psychiatric Psychiatric: Denies anxiety, behavioral changes, change in appetite, change in libido, cognitive impairment, confusion, depression, difficulty concentrating, hallucinations or suicidal thoughts Endocrine Endocrinology: Denies excessive sweating, polydipsia or polyuria Hematologic/Lymphatic Hematologic/Lymphatic: Denies easy bleeding, easy bruising or lymphadenopathy Allergic/Immunologic Allergic/Immunologic: Denies itchy eyes, lip swelling, seasonal rhinorrhea, rhinitis, throat swelling, tongue swelling, eczemia, wheezing or asthma Vital Signs Vital Signs Vital Signs: 09/27/22 07:27 09/27/22 07:27 09/27/22 08:43 Temperature Temperature Source Pulse Rate 101 H Blood Pressure 117/68 126/73 H BP Systolic 117 126 BP Diastolic 68 73 09/27/22 08:43 09/27/22 07:27 09/27/22 07:27 Temperature 98.1 F Temperature Source Temporal Pulse Rate 93 Blood Pressure BP Systolic BP Diastolic Weight Weight: 164 lb 3.91 oz Body Mass Index (BMI) 29.0 Physical Exam Const alert, oriented x3, no apparent distress and healthy appearing General Appearance: cooperative; Negative for anxious HEENT normocephalic Face and Sinus: normal facial exam Eyes EOMs intact bilaterally and no scleral icterus General Eye: normal appearance of both eyes Neck full ROM and supple Lymph Lymphatic: no lymphadenopathy noted Chest Chest: abnormal inspection of the chest Resp normal respiratory effort Effort and Inspection: able to speak in complete sentences Cardio regular rate GI soft to palpation and non-tender Inspection: gravid Palpation: soft; Negative for tender external exam normal Amniotic Fluid: ROM+plus Back/Spine no CVA tenderness Extremity normal to inspection, full ROM and no clubbing, cyanosis or edema General Extremity: Negative for calf tenderness or edema Skin Lesions: no lesions Rashes: no rashes Psych mental status grossly normal Labs Labs Labs: Blood Type O POSITIVE Antibody Screen NEGATIVE Hct 31.3 % (37-47) L Hgb 10.2 g/dL (12.0-15.0) L Obstetrics US Syphilis Total Ab Non-reactive Rubella IgG Antibody Reactive (Nonreactive) Hep Bs Antigen Non-Reactive (Nonreactive) Chlamydia DNA (MECHELLE) Negative (Negative) Neisseria gonorrhoeae DNA (MECHELLE) Negative (Negative) HIV 1&2 Antibody Non-Reactive (Nonreactive) Glucose 1 Hr 50 gm 140 mg/dL (70-140) Group B Strep DNA POSITIVE (Negative) H Rhogam given: No Assessment & Plan (1) Hx of depression, currently : COMMENT: after 3rd child; stable (2) : QUALIFIERS: Weeks of gestation: 37 weeks Qualified Code(s): Z3A.37 - 37 weeks gestation of COMMENT: NIPT low risk, discussed Carrier testing (3) Supervision of high risk , antepartum: COMMENT: [id number], JOHNNY 10/09/22,boyMIS Julian, Avan BF-Kevin (4) Ovarian cyst affecting , antepartum: COMMENT: left ovary (5) Request for sterilization: COMMENT: WANTS DEPO immediant pp. plan for 10 week laparoscopic bilateral salpingectomy. will need to sign title 19 this . (6) Tobacco abuse: COMMENT: Counseled. Down to 5 cig pd. Discussed again (7) Anemia affecting : COMMENT: Add Fe. Recheck 4 wk, IV venofer if hg drops to 8 or below. PO iron in meantime twice daily. (8) Abnormal glucose complicating childbirth: COMMENT: Needs 3 hr GTT, nl 3 HR GTT (9) IUGR (intrauterine growth restriction) affecting care of mother: COMMENT: Growth overall 13th% up from8%, AC 7th% per [facility] US. MFM repeat: nl BPP, recommend testing twice weekly with growth US every 2 weeks and weekly UA doppler. deliver 38-39 weeks (10) Positive GBS test: COMMENT: treat in labor. pcn allergy and resistant to clinda, means she needs vanc in labor (11) UTI (urinary tract infection) in , antepartum: COMMENT: WP on 09/12- needs repeat culture PLAN: Plan Patient presents IOL, plan management for with pitocin/AROM. Pain management: plans epidural. GBS positive, requiring Vanc. Management of any complications: IUGR I have reviewed the PFSH and made any clinically relevant updates.
[2022-09-27] MEDS: LACTATED RINGERS 500 ML 999 ML IV (09:37)
[2022-09-27] MEDS: fentaNYL-bupivacaine (epidural) 100 ML BAG EPIDURAL ×2 (10:55→14:59)
[2022-09-27] MEDS: Lactated Ringers 1,000 ML 200 ML IV (13:52)
[2022-09-27] MEDS: Ondansetron 4 MG/2 ML Vial IV (16:05)
--- NOTE | 2022-09-27 17:58 | OP.PCM_ITS ---
Assessment & Plan (1) Hx of depression, currently : COMMENT: after 3rd child; stable (2) : QUALIFIERS: Weeks of gestation: 37 weeks Qualified Code(s): Z3A.37 - 37 weeks gestation of COMMENT: NIPT low risk, discussed Carrier testing (3) Supervision of high risk , antepartum: COMMENT: [id number], JOHNNY 10/09/22,boy, Taco Dacosta Avan BF-Kevin (4) Ovarian cyst affecting , antepartum: COMMENT: left ovary (5) Request for sterilization: COMMENT: WANTS DEPO immediant pp. plan for 10 week laparoscopic bilateral salpingectomy. will need to sign title 19 this . (6) Tobacco abuse: COMMENT: Counseled. Down to 5 cig pd. Discussed again (7) Anemia affecting : COMMENT: Add Fe. Recheck 4 wk, IV venofer if hg drops to 8 or below. PO iron in meantime twice daily. (8) Abnormal glucose complicating childbirth: COMMENT: Needs 3 hr GTT, nl 3 HR GTT (9) IUGR (intrauterine growth restriction) affecting care of mother: COMMENT: Growth overall 13th% up from8%, AC 7th% per [facility] US. MFM repeat: nl BPP, recommend testing twice weekly with growth US every 2 weeks and weekly UA doppler. deliver 38-39 weeks (10) Positive GBS test: COMMENT: treat in labor. pcn allergy and resistant to clinda, means she needs vanc in labor Maternal Data Information JOHNNY Calculator Estimated Delivery Date Method Current WG Current Estimate 10/09/22 LMP (Uncertain) 38w 2d Other Estimates 10/09/22 Ultrasound #1 38w 2d Final JOHNNY: 10/09/22 Final JOHNNY Source: LMP Gestational age: 38 weeks 2 days Vaginal Delivery Maternal Presentation Maternal Presentation: Medically Indicated Induction Type of Induction: Pitocin and Amniotomy Medical Reason for Induction: - (IUGR) Operative Information Date of Procedure: 09/27/22 Pre-Operative Diagnosis: @ 38 weeks 2 days, IUGR Post-Operative Diagnosis: @ 38 weeks 2 days, IUGR Surgery / Procedure Performed: Spontaneous Vaginal Delivery Type of Anesthesia: Epidural Drain: Pete to straight drain Estimated Blood Loss: 100cc Findings Description of Procedure: Patient began pushing and delivered the head in the SMITH presentation. The head was delivered atraumatically. The anterior and posterior shoulders delivered without complication followed by the rest of the infant and the was placed on the maternal abdomen. Delayed cord clamping was employed for approximately 60 seconds. Cord was clamped and cut and gentle traction was applied to the cord and the placenta delivered spontaneously immediately following it was noted to be intact with three-vessel cord. The perineum and vagina were inspected and noted to have a small 1st degree laceration. The laceration was repaired using a 3-0 vicryl suture. EBL was 100 cc. Patient and tolerated delivery well. Presentation: Vertex Amniotic Membrane Rupture Type: Spontaneous Amniotic Fluid Description: Clear Placental Delivery Description: Spontaneous Placenta Disposition: [facility] Cord Vessel Description: 3 Vessels Cord Entanglement: None Infant A Gender: Male (1 minute): 8 (5 minute): 9 Delayed Cord Clamping: Yes Post Vaginal Delivery Medications Given After Delivery: IV Pitocin Episiotomy Description: None Laceration: 1st degree Complication Complications: None Procedures Urinary/Genital 52xxx-59xxx: [id number] Vaginal Delivery+PP Care([facility])
[2022-09-27] MEDS: Methylergonovine 0.2 MG/ML Ampul IM (18:11)
[2022-09-27] MEDS: Oxytocin 15 Units/NS 250ml 15 UNITS/250 ML IV.SOLN 83 UNITS IV (18:25)
[2022-09-27] MEDS: Ibuprofen 600 MG Tablet PO (20:39)
[2022-09-28] VITALS (11 sets, daily range): BP systolic 97–123; BP diastolic 58–68; PULSE 73–90; RESP 14–16; TEMP 35.9–36.6; O2SAT 96–100
[2022-09-28] MEDS: Acetaminophen 500 MG Tablet 1000 MG PO ×3 (01:06→22:00)
[2022-09-28] MEDS: Ibuprofen 600 MG Tablet PO ×2 (02:45→10:58)
--- NOTE | 2022-09-28 08:16 | PN.OBGYN_ITS ---
Subjective Subjective no complaints, sitting up in bed, no complaints. wants to go home Objective Data Objective Data Vital Signs: Vital Signs Temp Pulse Resp BP Pulse Ox O2 Del Method 97.7 F L 85 16 107/61 98 Room Air 09/28/22 07:58 09/28/22 07:58 09/28/22 07:58 09/28/22 07:58 09/28/22 03:00 09/28/22 03:00 Oxygen Delivery Method Room Air Weight: 164 lb 3.91 oz Body Mass Index (BMI) 29.0 Intake & Output: Intake and Output for Last 24 Hours 09/26/22 09/27/22 09/28/22 23:59 23:59 23:59 Intake Total 4085.00 / 4085.00 Output Total 700 / 1200 1350 / 1350 Balance 3385.00 / 2885.00 -1350 / -1350 Lab / Micro Data Result Diagrams: 09/27/22 07:50 Labs: Laboratory Results - last 24 hr 09/27/22 07:50: Blood Type O POSITIVE, Antibody Screen NEGATIVE 09/27/22 07:50: Syphilis Total Ab Non-reactive 09/27/22 07:50: Hep Bs Antigen Non-Reactive ROS Constitutional Constitutional: Denies chills, fatigue, fever(s), poor appetite or weakness Eyes Eyes: Denies blurry vision, change in vision, seeing flashes or spots in vision ENT HEENT: Denies dizziness, headache(s), loss taste/smell or sore throat Cardiovascular Cardiovascular: Denies chest pain, dizziness, dyspnea, irregular heart rhythm, palpitations or rapid heart rate Respiratory/Chest Respiratory/Chest: Denies chest tightness, cough, dyspnea or breast pain Gastrointestinal Gastrointestinal: Denies abdominal pain, constipation or vomiting Genitourinary Genitourinary: Denies dysuria or flank pain Musculoskeletal Musculoskeletal: Denies difficulty walking, joint pain, limited range of motion or numbness Neurologic Neurologic: Denies abnormal movements, abnormal speech, dizziness, numbness, seizure-like activity or syncope Psychiatric Psychiatric: Denies anxiety, behavioral changes, change in appetite, confusion, depression or suicidal thoughts Physical Exam Const alert, oriented x3 and no apparent distress General Appearance: cooperative and comfortable Resp normal respiratory effort Cardio regular rate GI normal to inspection, nondistended, normoactive bowel sounds GI Narrative: uterus is firm below umbilicus Palpation: soft Back/Spine no CVA tenderness and thoraco-lumbar ROM normal Extremity normal to inspection, no clubbing, cyanosis or edema, no calf tenderness and no pedal edema Psych mental status grossly normal, thought process normal, cooperative, affect normal, speech normal, activity/motor behavior normal, denies homicidal ideation and denies suicidal ideation Assessment & Plan (1) Hx of depression, currently : COMMENT: after 3rd child; stable (2) : QUALIFIERS: Weeks of gestation: 37 weeks Qualified Code(s): Z3A.37 - 37 weeks gestation of COMMENT: NIPT low risk, discussed Carrier testing (3) Supervision of high risk , antepartum: COMMENT: [id number], JOHNNY 10/09/22,boy, Taco Dacosta Avan BF-Kevin (4) Ovarian cyst affecting , antepartum: COMMENT: left ovary (5) Request for sterilization: COMMENT: WANTS DEPO immediant pp. plan for 10 week laparoscopic bilateral salpingectomy. will need to sign title 19 this . (6) Tobacco abuse: COMMENT: Counseled. Down to 5 cig pd. Discussed again (7) Anemia affecting : COMMENT: Add Fe. Recheck 4 wk, IV venofer if hg drops to 8 or below. PO iron in meantime twice daily. (8) Abnormal glucose complicating childbirth: COMMENT: Needs 3 hr GTT, nl 3 HR GTT (9) IUGR (intrauterine growth restriction) affecting care of mother: COMMENT: Growth overall 13th% up from8%, AC 7th% per [facility] US. MFM repeat: nl BPP, recommend testing twice weekly with growth US every 2 weeks an d weekly UA doppler. deliver 38-39 weeks (10) Positive GBS test: COMMENT: treat in labor. pcn allergy and resistant to clinda, means she needs vanc in labor (11) UTI (urinary tract infection) in , antepartum: COMMENT: WP on 09/12- needs repeat culture PLAN: Plan s/p PPD # 1. routine post delivery care 2. breast feeding- support given, wants to bottle feed 3. rh positive 4. rubella immune 5. dc to home later today if cleared by peds
--- NOTE | 2022-09-28 08:17 | DCINST_ITS ---
Discharge Instructions Diet Discharge Diet: No restrictions Activity Discharge Activity: Return to Normal Activity, May Not Drive (while taking narcotic pain medications.) and May Shower May resume sexual activity in: 4-6 weeks Dressing / Incision Call your doctor if your incision/area has: Continuous Slow Oozing, Sudden Increased Bleeding, Increased Pain/ Swelling, Increased Redness and Foul Smelling Discharge Follow Up Care Please Follow Up With: Wanda Zuniga, When: Call [phone] to make an appointment with your doctor in 6 weeks. If you had elevated blood pressure or 4th degree laceration, you will need to be seen in 2 weeks. Test Results: Test results from this visit will be discussed in further detail at your follow- up appointment, if applicable. Discharge Plan Admission Admit Date/Time: 09/27/22 06:55 Primary Reason for Your Visit: vaginal delivery Attending Provider: Wanda Zuniga Primary Care Provider: Care Physician,Annie Primary Discharge Orders/Prescriptions Prescriptions: New ibuprofen 800 mg tablet 800 mg PO Q8H PRN (Reason: pain) Qty: 30 0RF Continued PNV 432-gsxej-alajz-3-fish oil 1 EACH tablet,chewable 1 ea PO DAILY Referrals / Follow Up: Care Physician,No Primary [Primary Care Provider] - Disposition Disposition (needs filled in before D/C Order can be placed): Home, Self Care
[2022-09-29 02:00] VITALS: BP 128/79; PULSE 78; RESP 14
[2022-09-29 02:02] VITALS: BP 128/79; PULSE 78
[2022-09-29 08:00] VITALS: BP 111/75; PULSE 89
[2022-09-29 08:08] VITALS: BP 111/75; PULSE 89; RESP 16; TEMP 36.4
== END 2022-09-29 09:50 | disposition home or self-care (01) | DRG 560 ==
PROVIDERS: Admitting Provider Obstetrics & Gynecology; Visit Provider Obstetrics & Gynecology
DX: O36.5930 Maternal care for other known or suspected poor fetal growth, third trimester, not applicable or unspecified (principal); Z37.0 Single live birth; O99.814 Abnormal glucose complicating childbirth; F17.200 Nicotine dependence, unspecified, uncomplicated; O70.0 First degree perineal laceration during delivery; O99.334 Smoking (tobacco) complicating childbirth; Z3A.38 38 weeks gestation of pregnancy; O99.824 Streptococcus B carrier state complicating childbirth; Z86.59 Personal history of other mental and behavioral disorders
CPT/HCPCS: 59025; 59050; 85025; 86780; 86850; 86900; 86901; 87340; 99221; J7040; J7120; G0378; J2405; J3490

== ENCOUNTER 2023-01-09 06:54 | Day surgery (SDC) | payer MEDICAID, SELFPAY ==
[2023-01-08 07:22] LABS: Hematocrit 40.8 % (37-47); Hemoglobin 12.9 g/dL (12.0-15.0); Mean Corp Hgb Conc 31.6 g/dL (32-36); Mean Corpuscular Hgb 27.4 pg (27.0-32.0); Mean Corpuscular Volume 86.6 fL (81-99); Mean Platelet Vol. 10.7 fl (6.2-12.0); Platelet Count 226 K/mm3 (150-450); RBC Distribution Width CV 13.2 % (11.6-14.6); RBC Distribution Width SD 41.4 fl (35.1-43.9); Red Blood Count 4.71 M/mm3 (4.2-5.4)
--- NOTE | 2023-01-09 | FALS_PTH ---
PATIENT: JULIA JEFFERSON LOC: [facility] [place] U#:[id number] AGE/SX: 32/F ROOM: RE01/09/[address]: Dr. Wanda Zuniga DO : 1990 BED: DIS: 01/09/2023 SPEC #: [id number] RECD: 01/09/23 12:30 STATUS: MONIK MARCI #: [id number] JOSE: 01/09/23 00:[address]: Wanda Zuniga DEPT: SURGICAL PATHOLOGY RECD BY: Alejandro Anderson ENTERED: 01/09/23 12:30 SP TYPE: FALL TUBES OTHR DR: Annie Primary Care Phys Tissues: Fallopian tube Procedures: Surgery Specimen Level II Surgery Specimen Level IV HEADER OPERATION: Laparoscopic salpingectomy PRE-OP DIAGNOSIS: Sterilization TISSUE SUBMITTED: Bilateral fallopian tubes MICROSCOPIC DIAGNOSIS Right and left fallopian tubes, bilateral salpingectomies: Complete cross-sections of fallopian tubes. One fallopian tube with benign paratubal cyst. AM:miriam 01/10/2023 MICROSCOPIC DESCRIPTION Slides are reviewed. GROSS DESCRIPTION Received in fixative is one container labeled with the patient's name and designated bilateral fallopian tubes. The specimen consists of bilateral fallopian tubes including fimbrial ends measuring 6.5 cm in length and 0.5 cm in diameter and 6.0 cm in length and 0.5 cm in diameter. The fallopian tubes are not identified as right or left. One of the fallopian tubes show a paratubal cyst measuring 0.8 cm in greatest dimension. The cyst is filled with clear fluid. Sections reveal unremarkable cut surfaces. Car Rental Agent sections are submitted in two cassettes as follows: 1 - one fallopian tube, 2 - second fallopian tube and paratubal cyst. / SJ:miriam 01/09/2023 TC:5 CPT: 81622, 91729
--- NOTE | 2023-01-09 07:22 | HP.PCM_ITS ---
History and Physical Date of Admission: 01/09/23 Intake Vital Signs 11/30/2312:55 12/27/2313:02 12/27/2313:02 Height 5 ft 3 in 5 ft 3 in 5 ft 3 in Weight: 141 lb 4 oz BMI 25.0 Intake Visit Reasons: BS Roving Carrier Required: No Is patient in pain?: No Allergies Penicillins Allergy (Verified 12/27/22 14:02) PT UNSURE OF REACTION Medications medroxyprogesterone 150 mg/mL intramuscular syringe (Depo-Provera) 150 mg IM [id number] #1 mL 11/30/22 [Rx Confirmed 12/27/22] Post menopausal: No Patient : No : No [facility] Medical History Abnormal glucose complicating childbirth Anemia affecting History of blood transfusion History of nephrolithotomy with removal of calculi History of prior with IUGR IUGR (intrauterine growth restriction) affecting care of mother hemorrhage URI (upper respiratory infection) Social History adopted: No household members: significant other and children number of children: 4 current occupational status: employed 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 [employer] current occupational exposures/hazards: No pets and animals: Yes (not managing litterbox) pets and animals: cat(s) and dog(s) history of recent travel: No sexually active: Yes Smoking Status: Heavy Smoker (>10/day) Tobacco: How many years used: 13 quit status: considering quitting counseling given: counseling >3 minutes alcohol intake: former details: nita rare- Not while substance use type: does not use well-balanced diet: daily or most days caffeine: Yes Type: carbonated beverages Number of servings: 1 and coffee Number of servings: 1 eating out: rarely or never during the past year weight has: remained stable what type of physical activity do you participate in: none filomena/episcopalian: None seatbelt use: sometimes do you feel safe at home: Yes additional social history: TADEO Campuzano- Stay at home Dad HPI BS Details: JULIA JEFFERSON is a 32 year old who presents for preoperative exam for a scheduled laparoscopic bilateral salpingectomy. She signed a title 19 at her last visit and is sure that she does not want more children. History 4 Elective abortions Hx Para 4 Spontaneous abortions Hx # Term Pregnancies Ectopic pregnancies Hx # Pregnancies Multiple births # of living children 4 Past Pregnancies Del. Date Name GA/Weeks Outcome Route Bth Weight Gen Labor Lgth [facility]est[facility] F[facility] 06/03/13 Linus 38 live - full term 7#9oz Male 3 9 hrs epidural [facility] Dr. Ruth Campuzano 12/30/15 Taco 38 live - full term 6#7oz Male 6 hr epidural [facility] Dr.Weeman Campuzano 12/01/19 Sury 41 live - full term 7# Male 8 hrs epidural [facility] Dr.Weeman Campuzano 09/27/22 Casimiro 38 live - full term 5lbs 7oz Male epidural [facility] Dr. Gayle Delivery Date: 12/01/19 Last Updated by: Christiana Camacho IOL postdate Delivery Date: 09/27/22 Last Updated by: Geovanna Rebolledo Frank Anemia, IUGR, GBS + ROS Const ROS Unobtainable: All systems reviewed & are unremarkable except as noted in H Resp Resp: Reports system reviewed and no additional complaints, except as documented; Denies cough GI GI: Reports as per HPI Psych Psych: Reports system reviewed and no additional complaints, except as documented Exam Const General: cooperative, healthy appearing, comfortable and no acute distress Resp Effort & Inspection: normal respiratory effort Skin General: no rashes or lesions noted Psych Appearance: grossly normal Speech and Movement: speech and movement normal Coding Level of Care Code Off vis,est,level 4 Diagnoses Status post vaginal delivery Ovarian cyst affecting , antepartum O34.80; N83.209 Request for sterilization Z30.2 Tobacco abuse Z72.0 Assessment and Plan Assessment and Plan (1) Status post vaginal delivery: Status: Acute (2) Ovarian cyst affecting , antepartum: Status: Acute Comment: left ovary (3) Request for sterilization: Status: Acute Comment: WANTS DEPO immediant pp. plan for 10 week laparoscopic bilateral salpingectomy. will need to sign title 19 this . (4) Tobacco abuse: Status: Acute Comment: Counseled. Down to 5 cig pd. Discussed again Plan After discussing the patient's diagnosis and treatment plan options, patient wishes to proceed with surgical management. I have discussed with the patient the risks, benefits, and alternatives of the procedure which include but are not limited to risks of anesthesia, bleeding, infection, possible damage to bowel, bladder, or surrounding vasculature which could lead to additional surgery to evaluate any complications. Patient agrees to procedure and wishes to proceed. ACOG/uptodate references given for additional information regarding procedure. plan for laparoscopic bilateral salpingectomy
[2023-01-09 07:29] VITALS: BP 108/60; PULSE 80; RESP 18; TEMP 36.6; O2SAT 98; BMI 24.5
[2023-01-09] MEDS: Lactated Ringers 1,000 ML 15 ML IV (07:32)
[2023-01-09 07:57] LABS: Internal QC Validated? YES +Cl - CLEAR BKGD; Pregnancy, Serum, hCG Quali. NEGATIVE Negative
[2023-01-09 08:00] LABS: Record Kit Lot#, Serum Preg. HCG0000667200
--- NOTE | 2023-01-09 08:27 | DCINST_ITS ---
Discharge Instructions Diet Discharge Diet: No restrictions Activity Discharge Activity: Return to Normal Activity, May Not Drive (for two weeks or while taking narcotic pain medications.), May Shower and May Take a Tub Bath (in 7 days) May resume sexual activity in: 1 week Weight Bearing Status: Full weight bearing Dressing / Incision Call your doctor if you observe: Using more than 1 pad per hour, Shortness of breath, Chest pain and Uncontrolled pain Suture Line Care: Avoid Pulling/Pushing and Avoid Pinching/Bending Remove Dressing in: 1 week (if present) Cleanse incision/area with: Soap & Water and Keep Dressing Clean & Dry Follow Up Care Please Follow Up With: Wanda Zungia DO When: Call to make an appointment with your doctor for a follow up incision check in 1-2 weeks. Test Results: Test results from this visit will be discussed in further detail at your follow- up appointment, if applicable. Discharge Plan Admission Primary Reason for Your Visit: laparoscopic bilateral salpingectomy Attending Provider: Wanda Zuniga Primary Care Provider: Annie Blakely Primary Discharge Orders/Prescriptions Prescriptions: New ibuprofen 800 mg tablet 800 mg PO Q8H PRN (Reason: pain) Qty: 30 0RF oxycodone-acetaminophen [Percocet] 5-325 mg tablet 1 tab PO Q4H PRN (Reason: pain) 7 Days Qty: 10 0RF Rx Instructions: 1-2 tabs q 4 hrs as needed for pain Continued clindamycin HCl 300 mg capsule 300 mg PO Q6H Patient Comments: TAKE 1 CAPSULE BY MOUTH FOUR TIMES DAILY UNTIL GONE Discontinued medroxyprogesterone [Depo-Provera] 150 mg/mL syringe 150 mg IM [id number] Qty: 1 0RF Referrals / Follow Up: Care PhysicianAnnie Primary [Primary Care Provider] - Disposition Disposition (needs filled in before D/C Order can be placed): Home, Self Care
[2023-01-09] MEDS: Bupivacaine 0.25% 30 ML Vial (09:18)
[2023-01-09 09:32] VITALS: BP 108/60; BP 98/67; PULSE 65; RESP 16; TEMP 36.9; O2SAT 96
--- NOTE | 2023-01-09 09:38 | OP.PCM_ITS ---
Problems Associated Problem List Diagnoses (1) Request for sterilization: Report of Operation Date of Procedure: 01/09/23 Pre-Operative Diagnosis: desires permanent sterilization Post-Operative Diagnosis: desires permanent sterilization Surgery/Procedure Performed:: laparoscopic bilateral salpingectomy Surgeon: Wanda Zuniga Type of Anesthesia: General Description of Procedure: Patient was taken in the operating room and was placed under general anesthesia was prepped and draped in normal sterile fashion in the dorsal lithotomy po sition. Bladder was drained of clear urine and SCDs were on preoperatively. Uterus was sounded and a uterine manipulator was placed after dilating. Attention was then paid to the abdominal portion of the procedure and the umbilicus was elevated and injected with Marcaine and after a 5 mm incision was made and a 5 mm trocar was inserted into the abdomen under direct visualization using the laparoscope. Abdomen was insufflated with CO2 gas and a 5 mm optical trocar was placed under direct visualization. A left lower quadrant 5 mm port and a mini grasper suprapubically were placed under direct visualization. Uterus was well visualized and bilateral fallopian tubes identified and bilateral tubes were elevated and transecting across the mesosalpinx and the attachment to the uterine corpus bilaterally the tubes were removed without complication. Excellent hemostasis was noted. Fallopian tubes were removed through the lower port sites without complication. Liver and upper abdomen were visualized notably within normal limits and no other gross abnormalities were seen in the abdomen. All instruments removed from the abdomen after gas was desufflated. Port sites were closed with 3-0 Monocryl Steri's and op sites were applied. All instruments removed from the vagina and patient was awoken and taken recovery in stable condition. Complications none Admit VTE Documentation VTE Present on Admission: No VTE Mechan Device Prophylaxis: SCD's VTE Pharm Prophylaxis ordered?: No Multi Select Codes Urinary/Genital Urinary/Genital CPT Codes: 53295 Laproscopic BS/O
[2023-01-09 09:45] VITALS: BP 108/60; BP 97/64; PULSE 61; RESP 16; O2SAT 100
[2023-01-09 09:58] VITALS: BP 108/60; BP 98/68; PULSE 68; RESP 16; TEMP 37.1; O2SAT 100
[2023-01-09] MEDS: Oxycodone/Apap 5/325 Tablet PO (10:19)
[2023-01-09 10:45] VITALS: BP 108/60; BP 89/61; PULSE 68; RESP 16; TEMP 36.7; O2SAT 100
== END 2023-01-09 10:54 | disposition home or self-care (01) ==
LOC: SDC 06:55 → AC 06:55
PROVIDERS: Anesthesiology; Referring Provider Obstetrics & Gynecology; Visit Provider Obstetrics & Gynecology
PROC: (CPT 58661; principal; 2023-01-09 08:15)
DX: Z30.2 Encounter for sterilization (principal); F17.200 Nicotine dependence, unspecified, uncomplicated
CPT/HCPCS: 58661; 00840; 36415; 84703; 85027; 86850; 86900; 86901; 88302; 88305; J7120; J2405